=== PATIENT | female | born 1995 | race Hispanic/Latino ===

== ENCOUNTER 2024-08-17 03:14 | Observation (INO) | payer SELFPAY ==
[~2024-08-17] VITALS: Ht 162.6 cm; Wt 121.6 kg
[2024-08-17] MEDS: ACETAMINOPHEN 325 MG TAB PO ONE (04:33)
[2024-08-17] MEDS ORDERED: ONDANSETRON HCL INJ 2MG/ML 2ML 2 MG/ML VIAL IV PRN (06:30)
[2024-08-17] MEDS ORDERED: SODIUM CHLORIDE 0.9% 1000ML 1,000 ML IV SCH (06:30)
[2024-08-17] MEDS: SODIUM CHLORIDE 0.9% 1000ML 1,000 ML IV ONE (07:44)
[2024-08-17] MEDS ORDERED: SERTRALINE HCL100 MG PO (08:09)
[2024-08-17] MEDS ORDERED: METHOCARBAMOL750 MG PO (08:09)
[2024-08-17] MEDS ORDERED: CEFDINIR300 MG PO (08:09)
[2024-08-17] MEDS ORDERED: METFORMIN HCL500 M1 PO (08:09)
[2024-08-17] MEDS ORDERED: BUSPIRONE HCL5 MG PO (08:09)
[2024-08-17] MEDS: ACETAMINOPHEN 325 MG TAB PO PRN (11:03)
[2024-08-17] MEDS: SODIUM CHLORIDE 0.9% 1000ML 1,000 ML IV SCH (11:05)
[2024-08-17 14:00] VITALS: PULSE 79; RESP 16; TEMP 98
[2024-08-17 15:40] VITALS: BP 135/93; PULSE 83; RESP 19; TEMP 97.7; O2SAT 99
[2024-08-17] MEDS ORDERED: ACETAMINOPHEN-1 EAC4 (18:36)
[2024-08-17 19:17] VITALS: BP 131/76; PULSE 84; RESP 19; TEMP 97.5; O2SAT 100
[2024-08-17 20:45] VITALS: BP 131/76; PULSE 84; RESP 19; TEMP 97.5; O2SAT 100
[2024-08-17 21:27] LABS: BILIRUBIN,URINE NEGATIVE (NEGATIVE); CLARITY,URINE SL CLOUDY (CLEAR); COLOR,URINE YELLOW (YELLOW); GLUCOSE, URINE NEGATIVE (NEGATIVE); KETONES,URINE NEGATIVE (NEGATIVE); LEUKOCYTE ESTERASE ,URINE NEGATIVE (NEGATIVE); NITRITE,URINE NEGATIVE (NEGATIVE); PH,URINE 7 (5 - 7); PROTEIN,URINE DIPSTICK NEGATIVE (NEGATIVE); URINE UROBILINOGEN 0.2 mg/dL (0.2 - 1)
[2024-08-17 21:37] LABS: AMORPHOUS SEDIMENT,URINE FEW; BACTERIA,URINE MANY /HPF; CALCIUM OXALATE CRYSTALS,UR FEW (FEW); EPITHELIAL CELLS,URINE MODERATE /LPF; RBC,URINE 21-50 /HPF (0-5); TRANSITIONAL EPI CELLS,URINE FEW
[2024-08-17] MEDS: ACETAMIN/BUTALBITAL/CAFFEINE TAB PO PRN (22:22)
[2024-08-17] MEDS ORDERED: METHOCARBAMOL 750 MG TAB PO PRN (23:00)
[2024-08-17] MEDS: SERTRALINE HCL 100 MG TAB PO SCH (23:05)
[2024-08-17] MEDS: BUSPIRONE HCL 5 MG TAB PO SCH (23:06)
[2024-08-17 23:30] VITALS: BP 137/86; PULSE 81; RESP 18; TEMP 98.5; O2SAT 100
[2024-08-18 03:31] VITALS: BP 134/75; PULSE 77; RESP 18; TEMP 97.8; O2SAT 98
[2024-08-18 06:54] LABS: BASOPHILS % 0.8 % (0.0-1.0); EOSINOPHILS # (AUTO) 0.1 (0.0-0.4); EOSINOPHILS % 3.4 % (0.0-6.0); LYMPHOCYTES # (AUTO) 1.1 (1.0-3.2); LYMPHOCYTES % 45.3 % (18.0-39.1); MEAN CORPUSCULAR HEMOGLOBIN 27.9 pg (28-32); MEAN CORPUSCULAR HGB CONC 33.3 g/dL (31-35); MEAN CORPUSCULAR VOLUME 83.7 fL (81-99); MONOCYTES # (AUTO) 0.2 (0.2-0.8); MONOCYTES % 9.3 % (4.4-11.3); NEUTROPHILS # (AUTO) 0.9 (2.1-6.9); NEUTROPHILS % 39.1 % (38.7-80.0); PLATELET COUNT 144 x10e3/uL (140-360); RED BLOOD COUNT 4.66 x10e6/uL (3.6-5.1); RED CELL DISTRIBUTION WIDTH 13.4 % (11.7-14.4); WHITE BLOOD COUNT 2.36 x10e3/uL (4.8-10.8)
[2024-08-18 07:30] LABS: ALBUMIN 3.5 g/dL (3.5-5.0); ALBUMIN/GLOBULIN RATIO 1.3 (0.8-2.0); ANION GAP 13.9 mmol/L (8-16); BILIRUBIN,TOTAL 0.5 mg/dL (0.2-1.2); CALCIUM 8.5 mg/dL (8.4-10.2); CREATININE, SERUM 0.62 mg/dL (0.57-1.11); POTASSIUM 3.9 mmol/L (3.5-5.1); TOTAL PROTEIN 6.2 g/dL (6.5-8.1)
[2024-08-18 08:05] VITALS: BP 126/84; PULSE 79; RESP 20; TEMP 97.5; O2SAT 99
[2024-08-18 08:15] VITALS: BP 126/84; PULSE 79; RESP 20; TEMP 97.5; O2SAT 99
[2024-08-18] MEDS: METFORMIN HCL 500 MG TAB CR PO SCH (08:48)
[2024-08-18 12:19] VITALS: BP 153/83; PULSE 84; RESP 20; TEMP 97.9; O2SAT 99
[2024-08-18 16:29] VITALS: BP 145/89; PULSE 85; RESP 20; TEMP 98.2; O2SAT 100
== END 2024-08-18 17:45 | disposition home or self-care (01) ==
LOC: FSED 03:51 → ERHOLD 06:19 → UNDOADMOB 06:19 → ERHOLD 09:44 → FSED 14:45 → ERHOLD 15:29 → MED/SURG3 15:29
PROVIDERS: ADMIT Internal Medicine; ATTEND Internal Medicine
DX: R50.9 Fever, unspecified (principal); I10 Essential (primary) hypertension; E28.2 Polycystic ovarian syndrome; F41.8 Other specified anxiety disorders
CPT/HCPCS: 0223U; 36415; 70450; 80053 ×2; 81001; 81003; 81025; 83518; 83605; 85025 ×2; 87040 ×2; 87086; 87400; 99284; G0378 ×2; J7030 ×2